=== PATIENT | female | born 1960 | race Caucasian/White ===

== ENCOUNTER 2019-12-25 12:23 | Day surgery (SDC) | payer BC ==
[2019-12-22 09:24] VITALS: BMI 21.9
[~2019-12-25 12:23] MED LIST: Lidocaine 1% PF 5 ML VIAL ONE; PROPOFOL 200 MG/20 ML VIAL ONE
[2019-12-25] MEDS ORDERED: Ketorolac Tromethamine 30 MG/ML VIAL ONE (12:51)
[2019-12-25] MEDS ORDERED: Acetaminophen 500 MG TAB ONE (12:52)
[2019-12-25 13:17] LABS: #Basophils 0.1 thou/uL (0.0-0.2); #Eosinphils 0.1 thou/uL (0.0-0.7); #Monocytes 0.5 thou/uL (0.11-0.59); #Neutrophils 4.9 thou/uL (1.40-6.50); %Lymphocytes 35.2 % (21.0-51.0); %Monocytes 5.7 % (0.0-10.0); Hemoglobin 13.3 g/dL (12.0-16.0); Mean Corpuscular HGB CONC 32.7 g/dL (32.0-36.0); Mean Corpuscular Hemoglobin 27.9 pg (27.0-31.0); Mean Corpuscular Volume 85.3 fL (78.0-98.0); Mean Platelet Volume 7.1 fL (7.4-10.4); Platelet Count 245 thou/uL (130-400); RBC Distribution Width 11.8 % (11.5-14.5); Red Blood Cell (RBC) Count 4.76 mill/uL (4.20-5.40); White Blood Cell (WBC) Count 8.6 thou/uL (4.8-10.8)
[2019-12-25] MEDS ORDERED: Lidocaine 1% w/Epinephrine 1:100K 20 ML VIAL ONE (13:25)
[2019-12-25] MEDS ORDERED: Bupivacaine 0.25% HCL 30 ML VIAL ONE (13:25)
[2019-12-25] MEDS ORDERED: Midazolam HCl 2 mg/2 ml Vial ONE (13:27)
[2019-12-25] MEDS ORDERED: Fentanyl 100 MCG/2 ML VIAL ONE (13:27)
[2019-12-25 13:35] LABS: Anion Gap 11 mmol/L (10-20); BUN (Urea Nitrogen) 12 mg/dL (9.8-20.1); Calc. Creatinine Clearance 69 mL/min (70-130); Calcium 8.9 mg/dL (7.8-10.44); Carbon Dioxide 28 mmol/L (22-29); Chloride 105 mmol/L (98-107); Estimated GFR-MDRD 72; Glucose 87 mg/dL (70-105); Potassium 3.9 mmol/L (3.5-5.1); Sodium 140 mmol/L (136-145)
--- NOTE | 2019-12-25 16:35 | RAD ---
PORTABLE CHEST: Date: 12-25-2019 Time: 2:38 p.m. History: Mediport placement. FINDINGS: There is a left internal jugular port-a-cath with tip in the projection of the SVC. The heart size is normal. The lungs are expanded without lobar consolidation, pneumothoraces or pleural effusions. The re are degenerative changes in the spine. IMPRESSION: No radiographic evidence of acute cardiopulmonary process. POS: OFF
--- NOTE | 2019-12-25 16:46 | RAD ---
EXAM: XR Chest Insp/Exp PROVIDED CLINICAL HISTORY: Post left Mediport catheter placement. Initial chest x-ray questioned possibility of pneumothorax, an d an inspiratory and expiratory chest x-ray was recommended. COMPARISON: 12/25/2019 at 1430 hours. FINDINGS: A left internal jugular vein Mediport catheter remains in place and unchanged in position. There is a small left apical pneumothorax probably visualized on the expiratory phase of imaging which does appear less than 15% volume of the left hemithorax. The lungs are otherwise clear. No pleural effusio n is seen. No other interval change. IMPRESSION: Small left apical pneumothorax. Findings were discussed with Dr. Ragland on 12/25/2019 at 1639 hours.
--- NOTE | 2019-12-26 07:30 | RAD ---
PORTABLE CHEST 1 VIEW: Date: 12/25/2019 Time: 1438 hours HISTORY: MediPort placement. FINDINGS: There is left internal jugular Port-A-Cath with tip in the projection of the SVC. The heart size is n ormal. The lungs are well expanded with suggestion of a tiny left apical pneumothorax. There are dege nerative changes in the spine. IMPRESSION: Probable tiny left apical pneumothorax. Repeating exam with expiration and inspiration views would be helpful. POS: OFF
--- NOTE | 2019-12-26 12:32 | OP ---
DATE OF PROCEDURE: 12/25/2019 PREOPERATIVE DIAGNOSIS: Triple-negative right breast cancer. POSTOPERATIVE DIAGNOSIS: Triple-negative right breast cancer. PROCEDURE PERFORMED: Placement of left internal jugular low-profile MediPort (attempted left subclavian). ANESTHESIA: General with total intravenous anesthesia. INDICATIONS: The patient is a 59-year-old white female. She was recently diagnosed with a fairly sizable right breast triple-negative cancer. She was taken to the operating room at this time for MediPort placement for chemotherapy administration. DESCRIPTION OF OPERATION: Informed consent was obtained. The patient was taken to the operating room, where general anesthesia was obtained with the patient in supine position. Bilateral chest and neck were prepped with ChloraPrep and draped in sterile fashion. Local anesthetic was infiltrated on the left chest wall and large gauge needle was passed under the clavicle medially. After several attempts, I had only entered the subclavian artery on few occasions. I attempted in several different positions and needle entry sites. For reasons that were not clear, I never could access the subclavian vein and after hitting the artery a couple of times, I had likely developed a hematoma at that location. I therefore decided to switch to a left internal jugular access. Ultrasound was utilized and the area on the skin was locally anesthetized. Large gauge needle was passed on the initial pass into the left internal jugular vein. Guidewire was passed through the needle, which was fluoroscopically confirmed to enter the superior vena cava. An incision was created based on needle insertion site. A counter incision was created on the left chest wall after local anesthetic was infiltrated. A subcutaneous pocket was dissected extending inferiorly. A tunneler was used to tunnel the catheter between the chest wall incision and the neck incision. Under fluoroscopy, an introducer dilator was passed over the guidewire. The catheter was passed through the introducer, which was removed in the usual peel-apart fashion. The catheter tip was positioned at the atriocaval junction. The catheter was trimmed to the appropriate length within the chest wall incision and secured to the locking hub of the MediPort, which was secured to pectoral fascia with 2 interrupted sutures of 3-0 Prolene. The port aspirated blood freely and was flushed with heparinized saline. Both incisions were closed in layers with 3-0 and 4-0 Monocryl. An additional local anesthetic was infiltrated during closure. There were no complications. The patient tolerated the procedure well and was taken to recovery room in stable condition. Job ID: [id number]
== END 2019-12-25 17:05 | disposition home or self-care (01) ==
LOC: SDC 12:23
PROVIDERS: ATTEND Specialist
PROC: 02HV33Z Insertion of Infusion Device into Superior Vena Cava, Percutaneous Approach (ICD-10-PCS; principal; 2019-12-25)
PROC: B518ZZA Fluoroscopy of Superior Vena Cava, Guidance (ICD-10-PCS; principal; 2019-12-25)
DX: C50.411 Malignant neoplasm of upper-outer quadrant of right female breast (principal); Z17.1 Estrogen receptor negative status [ER-]; Z79.899 Other long term (current) drug therapy; Z88.0 Allergy status to penicillin; Z88.8 Allergy status to other drugs, medicaments and biological substances
CPT/HCPCS: 36415; 71045; 80048; 85025; C1788; J0690; J1642; J1885; J2001; J2250; J2704; J3010; S0020

== ENCOUNTER 2019-12-26 14:46 | Observation (INO) | payer BC ==
[2019-12-26 15:57] VITALS: BMI 21.6
--- NOTE | 2019-12-26 16:27 | RAD ---
EXAM: XR Chest Insp/Exp PROVIDED CLINICAL HISTORY: Left-sided pneumothorax. COMPARISON: 12/26/2019 at 1049 hours FINDINGS: Left apical pneumothorax is again seen and better seen on expiratory imaging. The pneumothorax has no t significantly changed when compared to the prior study earlier on today's date. Right lung remains clear. Left internal jugular vein Mediport catheter remains in place and unchanged in positio n. No other interval change. IMPRESSION: Overall stable left pneumothorax.
[2019-12-26] MEDS ORDERED: traMADol HCl 50 MG TAB PO PRN (17:37)
[2019-12-26] MEDS: traMADol HCl 50 MG TAB PO PRN (20:35)
[2019-12-27] MEDS ORDERED: traMADol HCl 50 MG TAB PO PRN (01:59)
--- NOTE | 2019-12-27 07:55 | PDOC.GSPN ---
Surgery Progress Note: Subj - Subjective Narrative: Ms. Herrera is 59 y/o female on hospital day #2 for a left sided pneumothorax. She had a mediport placed for triple negative right breast cancer 2 days ago. Her chest x ray on day of discharge showed a small left sided apical pnemuothorax that progressed to a 'moderate' size located near the left posterior 5th rib. Repeat chest x ray after 5-6 hours yesterday showed that pneumothorax was stable and had not significantly changed. Ms. Herrera only reports soreness from the incision sites of her mediport placement that is controlled with tramadol. Her neck incision only hurts when she moves her neck and pain is rated at a 2/10. She does not have chest pain or shortness of breath. She says that she feels 'some pressure' when taking a deep breath, but can breath deeply with ease. She has no smoking history. She denies dizziness, syncope, palpitations, confusion, n/v/d. No other complaints at this time. Surgery Progress Note: Obj - Vital signs Vital signs: Vital Signs - Most Recent Temp Pulse Resp BP Pulse Ox 97.9 F 65 18 119/76 99 12/27/19 04:03 12/27/19 04:03 12/27/19 04:03 12/27/19 04:03 12/27/19 04:03 - Physical Exam General: no distress ENT: no congestion, normal mucosa Neck: limited ROM (d/t pain) Cardiovascular: regular rate and rhythm, no murmur, other (No peripheral edema) Respiratory: clear to auscultation, normal expansion, normal respiratory effort (No use of accessory muscles or respirations, no peripheral cyanosis or clubbing. No rales, rhonchi or rubs.), breath sounds present, other Wound: healing well, other Surgery Progress Note: A/P - Plan Plan: Ms. Herrera is a 59 y/o female on hospital day #2 for a moderate left sided pneumothorax. She is asymptomatic and her vitals are wnl. Reading of today's chest x ray is still pending and will dictate how we proceed with her care. Based on chest x ray and possible progression of the pneumothorax, we can decide on the need for catheter thoracostomy/chest tube. For now, plan is to continue conservative management given her asymptomatic status. She should continue supplemental O2 via NC at 3 L/min. Will add dvt and gastric prophylaxis.
--- NOTE | 2019-12-27 08:16 | RAD ---
Chest 2 views inspiratory expiratory views HISTORY: Pneumothorax. Follow-up. COMPARISON: 12/25/2019. FINDINGS: Cardiac silhouette remains enlarged. Left apical pneumothorax is again demonstrated, with t he apex of the pleura just above the level of the posterior aspect of the left fourth rib on the expiratory view. Left internal jugular Port-A-Cath remains in place. Lungs are otherwise hyperinflated. Ill-defined parenchymal opacity at the right base is stable. Right lung well inflated. IMPRESSION: Stable radiographic appearance of the left pneumothorax. No new abnormalities are demonst rated.
[2019-12-27 08:50] VITALS: BP 107/72; TEMP 97.6
[2019-12-27] MEDS: traMADol HCl 50 MG TAB PO PRN (09:37)
--- NOTE | 2019-12-27 11:02 | SS ---
DATE OF ADMISSION: 12/26/2019 DATE OF DISCHARGE: 12/27/2019 ADMISSION DIAGNOSIS: Left pneumothorax. HISTORY OF PRESENT ILLNESS: The patient is a 59-year-old white female. She had a left-sided MediPort placed on December 25. There was difficulty accessing the left subclavian vein and the port had to eventually be placed in the left internal jugular vein. Postprocedure, chest x-ray documented a small pneumothorax that was only reliably seen on the inspiratory and expiratory chest x-ray. Since it was small and she was asymptomatic, she was discharged home. The following day (yesterday), a followup inspiratory and expiratory chest x-ray was obtained. This revealed that the pneumothorax had enlarged in size. I therefore requested that she presented to the hospital for admission and possible pneumothorax catheter placement. When she presented to the hospital yesterday evening, followup inspiratory and expiratory views were obtained and the pneumothorax appeared to be smaller in size. PAST MEDICAL HISTORY: Significant for a recent diagnosis of a triple negative right breast cancer. PAST SURGICAL HISTORY: Significant for hysterectomy, bilateral eye surgery, and recent breast biopsy and MediPort placement. MEDICATIONS: She is taking estradiol and supplements. ALLERGIES: PENICILLIN AND LAMISIL. PHYSICAL EXAMINATION: VITAL SIGNS: Upon admission, she is afebrile with pulse of 73, blood pressure 128/90, and oxygen saturation of 99% on room air. Full physical examination was unremarkable other than her right breast cancer in the upper outer quadrant and a left-sided MediPort, which is healing nicely with no significant tenderness or bruising. She also has a neck incision from the port placement that is healing appropriately. She has no change in breath sounds anteriorly, but there are some minimal decreased breath sounds on the left upper chest posteriorly. LABORATORY DATA: None were obtained. ASSESSMENT: The patient with left pneumothorax following MediPort placement. PLAN: Admission and observation. HOSPITAL COURSE: She was stable overnight and is without complaint or symptoms. Followup chest x-ray was obtained this morning that shows that the pneumothorax is still present but is small and may be decreasing slightly in size. She is breathing uneventfully and has no symptoms of discomfort or pressure. Assessment at this time, I think that this will likely resolve spontaneously. Since this is a small pneumothorax and I discussed with her the possibility that placement of a pneumothorax catheter could actually injure the underlying lung and right now, I think that the risks of treating the pneumothorax potentially outweigh the benefits if it is going to resolve spontaneously. Since it is entirely stable over 36 hours when this occurred, I think she is safe for discharge home. I will recheck chest x-ray in 48 hours. She is going to be in town for chemotherapy teaching. She is given my card and asked to call me at any time if she has any increased symptoms. Job ID: [id number]
== END 2019-12-27 10:49 | disposition home or self-care (01) ==
LOC: ONC 15:30 → INTOOBSV 15:30
PROVIDERS: ADMIT Specialist; ATTEND Specialist
DX: J93.9 Pneumothorax, unspecified (principal); C50.911 Malignant neoplasm of unspecified site of right female breast; Z17.1 Estrogen receptor negative status [ER-]; Z79.899 Other long term (current) drug therapy; Z88.0 Allergy status to penicillin; Z88.8 Allergy status to other drugs, medicaments and biological substances
CPT/HCPCS: 71045; G0378

== ENCOUNTER 2019-12-29 09:58 | Outpatient (CLI) | payer BC ==
--- NOTE | 2019-12-29 13:13 | RAD ---
INSPIRATORY AND EXPIRATORY CHEST: Date: 12/29/2019 HISTORY: Follow-up of pneumothorax. COMPARISON: 12/27/2019 exam. FINDINGS: Heart size is within normal limits. Left-sided MediPort catheter is again demonstrated. Left-sided pn eumothorax is stable as compared to the 12/27/2019 examination. Right lower lobe parenchymal changes again demonstrated. IMPRESSION: Stable appearance to left-sided pneumothorax as compared to the 2004 and 2005 studies. POS: [facility]
== END 2019-12-29 09:59 | disposition home or self-care (01) ==
LOC: RAD 09:58 → ULT 09:59
PROVIDERS: ATTEND Internal Medicine Hematology & Oncology
DX: Z51.11 Encounter for antineoplastic chemotherapy (principal); C50.811 Malignant neoplasm of overlapping sites of right female breast; C50.411 Malignant neoplasm of upper-outer quadrant of right female breast; I08.1 Rheumatic disorders of both mitral and tricuspid valves; I31.3 Pericardial effusion (noninflammatory); J93.9 Pneumothorax, unspecified; Z79.899 Other long term (current) drug therapy
CPT/HCPCS: 36415; 71045; 80048; 93306

== ENCOUNTER 2019-12-29 14:56 | Day surgery (SDC) | payer BC ==
--- NOTE | 2019-12-29 17:13 | RAD ---
INSPIRATORY AND EXPIRATORY CHEST: 12/29/19 HISTORY: Heimlich valve placement. COMPARISON: Earlier exam the same day. The left sided pneumothorax has now almost completely resolved with placement of a Heimlich valve tub e. A tiny apical pneumothorax still seen on the expiration film. IMPRESSION: Almost complete resolution of the left sided pneumothorax post tube placement. POS: [facility]
--- NOTE | 2019-12-31 07:28 | OP ---
DATE OF PROCEDURE: 12/29/2019 PREOPERATIVE DIAGNOSIS: Left pneumothorax. POSTOPERATIVE DIAGNOSIS: Left pneumothorax. PROCEDURE PERFORMED: Placement of left-sided pneumothorax catheter with Heimlich valve. ANESTHESIA: 1% lidocaine. INDICATIONS: The patient is a 59-year-old white female. Four days previously, she had a left subclavian MediPort placement attempted. I could not access the left subclavian vein. Eventually, it had to be placed in the left internal jugular vein. It was recognized after the procedure that she did have a small left pneumothorax. This has been observed for the past few days and is deemed to be somewhat stable, but as of today, four days after her procedure, it is persistent and probably larger. I therefore recommended pneumothorax catheter placement at this time. DESCRIPTION OF PROCEDURE: Informed consent was obtained. The patient was placed on her bed in the Day Surgery area on her right lateral decubitus position. The left side of the chest was prepped with ChloraPrep and draped in sterile fashion. It was locally anesthetized with 1% lidocaine. A small stab incision was created. Pneumothorax catheter was advanced over the underlying rib into the pleural space. Air was aspirated, the catheter was passed over the needle and advanced superiorly. The catheter was secured at skin exit site with 3-0 silk suture. It was secured to tubing with the Heimlich valve. Prior to securing this tubing, I utilized the stopcock to aspirate the air from within the pneumothorax until all air had been aspirated. It was then placed within the Heimlich valve. Chest x-ray documented good position of the catheter and what appeared to be appropriate resolution of the pneumothorax. Dressing was applied. The patient was instructed in care. She is discharged home. She will follow up in my office in 3 days (on Wednesday) for catheter removal. Job ID: [id number]
== END 2019-12-29 16:20 | disposition home or self-care (01) ==
LOC: SDC 14:56
PROVIDERS: ATTEND Specialist
PROC: 0B9P30Z Drainage of Left Pleura with Drainage Device, Percutaneous Approach (ICD-10-PCS; principal; 2019-12-29)
DX: J93.9 Pneumothorax, unspecified (principal); Z88.0 Allergy status to penicillin; Z88.3 Allergy status to other anti-infective agents
CPT/HCPCS: 71045

== ENCOUNTER 2020-01-01 08:37 | Outpatient (CLI) | payer BC ==
--- NOTE | 2020-01-01 10:08 | CT ---
CT Chest Abd Pelvis W Con HISTORY: Right breast cancer, triple negative. Exam requested for staging COMPARISON: None. FINDINGS: There is a peripherally enhancing 2.5 cm right breast mass consistent with known history of malignanc y. No mediastinal, hilar, axillary mass or lymphadenopathy is seen. No pleural or pericardial effusions are seen. A left-sided pleural catheter is present. No pneumothoraces are seen. No lung nod ules or masses are identified. There is minimal atelectatic change at the left lung base. The liver, spleen, pancreas, adrenal glands and kidneys appear normal. No calcified gallstones are se en. No free air or free fluid in lymphadenopathy is noted in the abdomen or pelvis. The small bowel loops aren't abnormally dilated. Appendix is normal. There are degenerative changes in the thoracic and lumbar spine. No osteolytic or osteoblastic lesion s are identified. IMPRESSION: Right breast malignancy without evidence of distant metastatic disease.
--- NOTE | 2020-01-01 13:26 | NM ---
WHOLE BODY BONE SCAN: HISTORY: Right breast cancer, triple negative. Initial staging RADIOPHARMACEUTICAL: 33 mCi technetium 99m-MDP injected intravenously COMPARISON: None CORRELATION: CT scan of the chest abdomen and pelvis from same date FINDINGS There scattered degenerative activity in the appendicular skeleton. No other abnormal areas of tracer localization are seen in the skeleton to suggest metastatic disease . Tracer excretion through the kidneys is within normal limits. IMPRESSION: No scintigraphic evidence of osseous metastatic disease.
[2020-01-01] MEDS ORDERED: Iopamidol 370 76% 100 ML VIAL ONE (15:47)
== END 2020-01-01 08:38 | disposition home or self-care (01) ==
LOC: CT 08:37
PROVIDERS: ATTEND Internal Medicine Hematology & Oncology
DX: C50.811 Malignant neoplasm of overlapping sites of right female breast (principal); M25.50 Pain in unspecified joint
CPT/HCPCS: 71260; 74177; 78306; A9503; Q9967

== ENCOUNTER 2020-01-11 14:37 | Outpatient (CLI) | payer BC | END 2020-01-11 14:38 | disposition home or self-care (01) | LOC: ULT 14:37 | PROVIDERS: ATTEND Internal Medicine Hematology & Oncology | DX: Z51.11 Encounter for antineoplastic chemotherapy (principal); C50.811 Malignant neoplasm of overlapping sites of right female breast; I08.1 Rheumatic disorders of both mitral and tricuspid valves | CPT/HCPCS: 93306 ==

== ENCOUNTER 2020-02-22 14:06 | Outpatient (CLI) | payer BC ==
[~2020-02-22 14:06] MED LIST changes: +Iopamidol 370 76% 100 ML VIAL ONE; -Lidocaine 1% PF 5 ML VIAL ONE; -PROPOFOL 200 MG/20 ML VIAL ONE
--- NOTE | 2020-02-22 15:05 | CT ---
CTA THORAX UTILIZING IV CONTRAST PE PROTOCOL 3D REFORMATTED IMAGING: Date: 02/22/2020 INDICATION: History of shortness of breath for a few weeks following initiation of immunotherapy. Patient has a h istory of MediPort placement, as well as breast cancer. COMPARISON: CT of the chest, abdomen, and pelvis dated 01/30/2020. FINDINGS: The ill-defined mass within the right breast is again demonstrated. No definite pathologically enlarg ed lymph nodes are evident. No central or segmental pulmonary embolus is noted. Heart and great vesse ls appear within normal limits. There is a left IJ chest wall port in place. There are areas of subse gmental volume loss within the left lower lobe, which is new. No focal consolidation, marked air spac e opacity, or pleural effusion is noted. No suspicious pulmonary nodules are evident. Areas of suspec rodrigo subsegmental volume loss seen within the right middle lobe. Visualized upper abdomen reveals no d efinite acute abnormality. No acute osseous abnormality is demonstrated. IMPRESSION: 1. No central or segmental pulmonary embolus. 2. Nonspecific subsegmental volume loss in the left lower lobe and right middle lobe. POS: [facility]
== END 2020-02-22 14:07 | disposition home or self-care (01) ==
LOC: CT 14:06
PROVIDERS: ATTEND Internal Medicine Hematology & Oncology
DX: C50.811 Malignant neoplasm of overlapping sites of right female breast (principal); I26.99 Other pulmonary embolism without acute cor pulmonale; R06.02 Shortness of breath; R91.8 Other nonspecific abnormal finding of lung field
CPT/HCPCS: 71275; Q9967

== ENCOUNTER 2020-03-01 13:06 | Emergency (ER) | payer BC, OTHER ==
--- NOTE | 2020-03-01 14:14 | RAD ---
Portable frontal chest radiograph: 03/01/2020 COMPARISON: 12/25/2019 HISTORY: Cough, concern for chen virus FINDINGS: Lungs are clear. Heart and mediastinal contours appear within normal limits. There is a lef t-sided Port-A-Cath. IMPRESSION: No acute findings.
[2020-03-01 14:27] LABS: #Lymphocytes 0.8 thou/uL (1.20-3.40); #Monocytes 0.1 thou/uL (0.11-0.59); #Neutrophils 3.2 thou/uL (1.40-6.50); %Basophils 1.1 % (0.0-1.0); %Eosinophils 0.3 % (0.0-10.0); %Lymphocytes 20.1 % (21.0-51.0); %Monocytes 2.3 % (0.0-10.0); %Neutrophils 76.3 % (42.0-75.0); Hemoglobin 10.5 g/dL (12.0-16.0); Mean Corpuscular HGB CONC 34.6 g/dL (32.0-36.0); Mean Corpuscular Volume 86.7 fL (78.0-98.0); Mean Platelet Volume 7.3 fL (7.4-10.4); Platelet Count 200 thou/uL (130-400); RBC Distribution Width 14.7 % (11.5-14.5); Red Blood Cell (RBC) Count 3.51 mill/uL (4.20-5.40); White Blood Cell (WBC) Count 4.1 thou/uL (4.8-10.8)
[2020-03-01 14:53] LABS: ALT (SGPT) 35 U/L (8-55); AST (SGOT) 31 U/L (5-34); Albumin 3.2 g/dL (3.5-5.0); Alkaline Phosphatase 55 U/L (40-110); Anion Gap 12 mmol/L (10-20); BUN (Urea Nitrogen) 16 mg/dL (9.8-20.1); Bilirubin, Total 0.8 mg/dL (0.2-1.2); CK (CPK) 167 U/L (29-168); Calc. Creatinine Clearance 0 mL/min (70-130); Calcium 8.4 mg/dL (7.8-10.44); Carbon Dioxide 26 mmol/L (22-29); Chloride 99 mmol/L (98-107); Estimated GFR-MDRD 61; Globulin 2.5 g/dL (2.4-3.5); Glucose 132 mg/dL (70-105); Magnesium 1.8 mg/dL (1.6-2.6); Potassium 3.3 mmol/L (3.5-5.1); Protein, Total 5.7 g/dL (6.0-8.3); Sodium 134 mmol/L (136-145)
--- NOTE | 2020-03-09 09:11 | EKG ---
Test Reason : Blood Pressure : / mmHG Vent. Rate : 064 BPM Atrial Rate : 064 BPM P-R Int : 098 ms QRS Dur : 090 ms QT Int : 432 ms P-R-T Axes : 046 047 023 degrees QTc Int : 445 ms Sinus rhythm with short [place] Otherwise normal ECG Confirmed by YASMIN BA DO ([id number]), web editor DARIO STEWART ([id number]) on 03/09/2020 9:11:05 AM Referred By: Confirmed By:YASMIN BA DO
== END 2020-03-01 17:00 | disposition home or self-care (01) ==
LOC: ERS 13:06
DX: R05 Cough (principal); R07.89 Other chest pain; Z20.828 Contact with and (suspected) exposure to other viral communicable diseases; Z79.899 Other long term (current) drug therapy
CPT/HCPCS: 71045; 80053; 82550; 83605; 83735; 84484; 85025; 87635; 87804; 93005; 96360; 96361; U0003

== ENCOUNTER 2020-03-06 10:23 | Outpatient (CLI) | payer BC ==
--- NOTE | 2020-03-06 11:39 | CT ---
CHEST CT SCAN WITHOUT IV CONTRAST: Date: 03/06/2020 HISTORY: Pneumonitis, history of breast cancer. FINDINGS: There is persistent somewhat obliquely oriented linear parenchymal changes in the left lower lobe, so mewhat thickened at the pleura, stable. This certainly could represent some persistent subsegmental a telectasis. This finding was not evident on prior CT of 01/01/2020. The previously noted minimal line ar and parenchymal changes in the right middle lobe have resolved. No evidence for pulmonary nodule o r pulmonary mass. No mediastinal mass or adenopathy. No pleural effusion or pericardial effusion. Sta ble right breast mass. No evidence for bone metastasis. IMPRESSION: 1. Stable obliquely oriented linear and parenchymal change in the left lower lobe, evidence for part ial atelectasis. 2. Resolution of the previously noted minimal linear and parenchymal changes in the right middle lob e. 3. Stable right breast mass. 4. No mediastinal mass or adenopathy, pleural effusion, pericardial effusion, or other significant n ew process. 5. No evidence for metastasis. POS: [facility]
== END 2020-03-06 10:24 | disposition home or self-care (01) ==
LOC: BICCT 10:23
PROVIDERS: ATTEND Internal Medicine Hematology & Oncology
DX: C50.811 Malignant neoplasm of overlapping sites of right female breast (principal); J69.8 Pneumonitis due to inhalation of other solids and liquids; I26.99 Other pulmonary embolism without acute cor pulmonale; R06.02 Shortness of breath; N63.10 Unspecified lump in the right breast, unspecified quadrant; J98.11 Atelectasis
CPT/HCPCS: 71250

== ENCOUNTER 2020-05-30 05:25 | Outpatient (CLI) | payer BC, OTHER ==
[2020-05-30 16:54] LABS: Anion Gap 13 mmol/L (10-20); BUN (Urea Nitrogen) 11 mg/dL (9.8-20.1); Calc. Creatinine Clearance 0 mL/min (70-130); Calcium 9.5 mg/dL (7.8-10.44); Carbon Dioxide 29 mmol/L (22-29); Chloride 102 mmol/L (98-107); Estimated GFR-MDRD 73; Glucose 69 mg/dL (70-105); Sodium 140 mmol/L (136-145)
[2020-05-30 17:55] LABS: Band 31 % (5-11); Dohle Bodies SLIGHT; Hemoglobin 11.1 g/dL (12.0-16.0); Lymphocytes 11 % (21-51); MDiff Complete? YES; Mean Corpuscular HGB CONC 33.5 g/dL (32.0-36.0); Mean Corpuscular Hemoglobin 31.2 pg (27.0-31.0); Mean Corpuscular Volume 93.1 fL (78.0-98.0); Mean Platelet Volume 7.8 fL (7.4-10.4); Metamyelocyte 3 % (0-0); Monocytes 17 % (0-10); Myelocyte 4 % (0-0); Neutrophil 33 % (42-75); Ovalocytes SLIGHT = 2-5 cells (100X) (0-1/hpf); Platelet Count 229 thou/uL (130-400); Platelet Morphology Comment Appears Adequate; Polychromasia SLIGHT = 2-3 cells (100X) (0-2/hpf); RBC Distribution Width 14.6 % (11.5-14.5); Red Blood Cell (RBC) Count 3.56 mill/uL (4.20-5.40); Toxic Granulation SLIGHT; White Blood Cell (WBC) Count 14.4 thou/uL (4.8-10.8)
[2020-05-31 12:53] LABS: SARS-CoV-2 MS2 Positive; SARS-CoV-2 N Gene Negative; SARS-CoV-2 S Gene Negative; SARS-CoV-2 orf1ab Negative
== END 2020-05-30 05:26 | disposition home or self-care (01) ==
LOC: LABBT 05:25
PROVIDERS: ATTEND Specialist
DX: Z01.812 Encounter for preprocedural laboratory examination (principal); Z11.59 Encounter for screening for other viral diseases; C50.411 Malignant neoplasm of upper-outer quadrant of right female breast
CPT/HCPCS: 80048; 85025; 87635; U0003

== ENCOUNTER 2020-06-04 07:30 | Day surgery (SDC) | payer BC ==
[2020-05-28 14:27] VITALS: BMI 21.9
--- NOTE | 2020-06-04 09:10 | NM ---
Exam: Nuclear medicine lymphoscintigraphy HISTORY: Malignant neoplasm of the upper outer quadrant of the right female breast TECHNIQUE: Patient administered 0.393 mm of technetium 99m filtered sulfur colloid subjacent at the 1 2:00, 3:00, 6:00 and 9:00 position. FINDINGS: Static images demonstrate a right axillary sentinel lymph node. IMPRESSION: Right axillary sentinel lymph node
[2020-06-04] MEDS ORDERED: Acetaminophen 500 MG TAB ONE (09:16)
[2020-06-04] MEDS ORDERED: Ketorolac Tromethamine 30 MG/ML VIAL ONE (09:16)
[2020-06-04] MEDS ORDERED: Lidocaine-Prilocaine 2.5% Cream 5 GM TUBE ONE (10:03)
[2020-06-04] MEDS ORDERED: Lidocaine 1% w/Epinephrine 1:100K 20 ML VIAL ONE (11:45)
[2020-06-04] MEDS ORDERED: Bupivacaine 0.25% HCL 30 ML VIAL ONE (11:45)
[2020-06-04] MEDS ORDERED: Fentanyl 100 MCG/2 ML VIAL ONE (11:56)
[2020-06-04] MEDS ORDERED: Isosulfan Blue 50 MG/5 ML VIAL ONE (12:17)
[2020-06-04] MEDS ORDERED: EPHEDRINE 25 MG/5 ML SYRINGE ONE (12:42)
[2020-06-04] MEDS ORDERED: Ondansetron PF 4 MG/2 ML Vial ONE (12:42)
[2020-06-04] MEDS ORDERED: Dexamethasone 20 MG/5 ML VIAL ONE (12:42)
[2020-06-04] MEDS ORDERED: PHENYLEPHRINE-NS 100 MCG/ML 10 ML SYRINGE ONE (12:42)
[2020-06-04] MEDS ORDERED: PROPOFOL 200 MG/20 ML VIAL ONE (12:42)
[2020-06-04] MEDS ORDERED: Lidocaine 1% PF 5 ML VIAL ONE (12:42)
--- NOTE | 2020-06-05 13:46 | OP ---
DATE OF PROCEDURE: 06/04/2020 PREOPERATIVE DIAGNOSES: Right breast cancer with previous right axillary lymphadenopathy. POSTOPERATIVE DIAGNOSES: Right breast cancer with previous right axillary lymphadenopathy. PROCEDURES PERFORMED: Ultrasound-guided right breast needle localization, right breast needle localized lumpectomy, right axillary sentinel lymph node mapping, and right axillary sentinel lymph node biopsy. ANESTHESIA: General endotracheal. INDICATIONS: The patient is a 59-year-old female. She had been diagnosed with a palpable malignancy in the upper outer right breast. Ultrasound had revealed lymphadenopathy. Secondary to the large size of her malignancy, I had recommended neoadjuvant chemotherapy. She had completed her chemotherapy with a significant decrease in the size of the malignancy. It was still; however, easily visible with ultrasound. The axillary lymphadenopathy was no longer visible at the time of preoperative evaluation. She elected to proceed with the breast conservation surgery. DESCRIPTION OF OPERATION: Informed consent was obtained. The patient was taken to the operating room, where general endotracheal anesthesia was obtained with the patient in supine position. The patient had undergone lymphoscintigraphy, which revealed right axillary sentinel lymph nodes. A 3 mL of Lymphazurin was infiltrated into the periareolar subdermal tissue and massaged for 5 minutes. The breast and axilla were then prepped with ChloraPrep and draped in sterile fashion. Ultrasound was utilized to katy the location of the malignancy in the upper outer quadrant. It was marked on the skin in a grid like fashion. I then turned my attention to the axilla. Local anesthetic was infiltrated using a mixture of 1% lidocaine with epinephrine as well as 0.25% Marcaine. A transverse low axillary incision was created and dissection was carried through skin and subcutaneous tissue. Neoprobe was utilized to identify areas of maximum radio intensity. I was able to identify two separate sentinel lymph nodes, each of which had blue dye. One of them was the dominant sentinel lymph node, while the other had much less radioactivity. After these two were removed, there was no other area of significant radioactivity within the axilla. There was no palpable area of abnormality. Ultrasound revealed no other significant lymphadenopathy within the axilla. Each of the nodes as they were identified was dissected circumferentially and the investing lymphatics were divided between clamps and 3-0 silk ties. The nodes were submitted for touch prep evaluation. There was found to be no evidence of malignancy in either lymph node. The wound was then closed in layers with 3-0 and 4-0 Monocryl and local anesthetic was infiltrated during closure. Attention was turned to the malignancy. A localizing needle was passed in a medial to lateral fashion through the malignancy. The location of the needle relative to the malignancy was appreciated. Because of the proximity of the malignancy to the skin, I elected to remove an ellipse of skin over the top of this. An elliptical incision was created and dissection was carried through skin and subcutaneous tissue. Flaps were raised superiorly and inferiorly. Dissection was then carried out on the medial aspect behind the localizing wire to get down below the area of the malignancy. I dissected a wide core of tissue around the localizing wire and removed this intact. It was interrogated with ultrasound during closure to ensure appropriate margins. The removed specimen was then tagged with sutures for orientation and passed off the field. Specimen mammography revealed the clip within the specimen. Meticulous hemostasis was obtained. The wound was closed in layers with 3-0 and 4-0 Monocryl without attempting to completely close the space. Dermabond was placed externally on each incision. There were no complications. Blood loss was negligible. The patient tolerated the procedure well and was taken to recovery room in stable condition. Job ID: [id number]
== END 2020-06-04 15:40 | disposition home or self-care (01) ==
LOC: SDC 07:30
PROVIDERS: ATTEND Specialist
PROC: 07B50ZZ Excision of Right Axillary Lymphatic, Open Approach (ICD-10-PCS; principal; 2020-06-04)
PROC: 0HBT0ZZ Excision of Right Breast, Open Approach (ICD-10-PCS; principal; 2020-06-04)
DX: C50.411 Malignant neoplasm of upper-outer quadrant of right female breast (principal); Z17.1 Estrogen receptor negative status [ER-]; Z79.82 Long term (current) use of aspirin; Z79.84 Long term (current) use of oral hypoglycemic drugs; Z88.0 Allergy status to penicillin; Z88.8 Allergy status to other drugs, medicaments and biological substances
CPT/HCPCS: 76098; 78195; 88307; 88333; 88334; 88342; 93005; 93010; A9541; J0690; J1100; J1642; J1885; J2405; J2704; J3010; Q9968; S0020

== ENCOUNTER 2021-07-01 06:20 | Day surgery (SDC) | payer BC ==
[2021-06-30 11:07] VITALS: BMI 24.7
[~2021-07-01 06:20] MED LIST changes: +Acetaminophen 500 MG TAB PO PRN; +Cyclopentolate 1% Opth Drop 2 ML BOT L EYE SCH; +EPINEPHrine 0.3 MG in Ophthalmic Irrigation Solution 500 ML IRR SCH; -Iopamidol 370 76% 100 ML VIAL ONE; +Phenylephrine 2.5% Ophth Soln 5 ML BOT L EYE SCH
[2021-07-01] MEDS ORDERED: EPINEPHrine 0.3 MG in Ophthalmic Irrigation Solution 500 ML IRR SCH (06:30)
[2021-07-01] MEDS ORDERED: Cyclopentolate 1% Opth Drop 2 ML BOT ONE (06:39)
[2021-07-01] MEDS ORDERED: Phenylephrine 2.5% Ophth Soln 5 ML BOT ONE (06:39)
[2021-07-01] MEDS ORDERED: Fentanyl 100 MCG/2 ML VIAL ONE (06:58)
[2021-07-01] MEDS ORDERED: Midazolam HCl 2 mg/2 ml Vial ONE (07:41)
[2021-07-01] MEDS ORDERED: Bupivacaine PF 0.75% SDV 10 ML ONE (07:48)
[2021-07-01] MEDS ORDERED: Triamcinolone 40 MG/ML VIAL ONE (07:48)
[2021-07-01] MEDS ORDERED: PROPOFOL 200 MG/20 ML VIAL ONE (07:48)
[2021-07-01] MEDS ORDERED: Maxitrol 0.1% Opth Oint 3.5 GM TUBE ONE (07:48)
[2021-07-01] MEDS ORDERED: Indocyanine Green 25 MG/10 ML VIAL ONE (07:48)
[2021-07-01] MEDS ORDERED: Lidocaine 4% PF 5 ML AMP ONE (07:48)
== END 2021-07-01 08:40 | disposition home or self-care (01) ==
LOC: SDC 06:20
PROVIDERS: ATTEND Ophthalmology Retina Specialist
PROC: 08T53ZZ Resection of Left Vitreous, Percutaneous Approach (ICD-10-PCS; principal; 2021-07-01)
PROC: 08NF3ZZ Release Left Retina, Percutaneous Approach (ICD-10-PCS; principal; 2021-07-01)
DX: H35.372 Puckering of macula, left eye (principal); Z88.0 Allergy status to penicillin; Z88.8 Allergy status to other drugs, medicaments and biological substances; Z79.899 Other long term (current) drug therapy; Z90.710 Acquired absence of both cervix and uterus; Z98.890 Other specified postprocedural states
CPT/HCPCS: J0171; J2250; J2704; J3010; J3301; J3490

== ENCOUNTER 2021-09-02 05:53 | Day surgery (SDC) | payer BC ==
[2021-09-01 16:03] VITALS: BMI 24.0
[~2021-09-02 05:53] MED LIST changes: -Acetaminophen 500 MG TAB PO PRN; -Cyclopentolate 1% Opth Drop 2 ML BOT L EYE SCH; -Phenylephrine 2.5% Ophth Soln 5 ML BOT L EYE SCH
[2021-09-02] MEDS ORDERED: Phenylephrine 2.5% Ophth Soln 5 ML BOT ONE (06:10)
[2021-09-02] MEDS ORDERED: Cyclopentolate 1% Opth Drop 2 ML BOT ONE (06:10)
[2021-09-02] MEDS ORDERED: PROPOFOL 20 ML ONE (06:28)
[2021-09-02] MEDS ORDERED: Fentanyl 100 MCG/2 ML VIAL ONE (06:28)
[2021-09-02] MEDS ORDERED: Midazolam HCl 2 mg/2 ml Vial ONE (06:28)
[2021-09-02] MEDS ORDERED: Indocyanine Green 25 MG/10 ML VIAL ONE (07:00)
[2021-09-02] MEDS ORDERED: Lidocaine 4% PF 5 ML AMP ONE (07:00)
[2021-09-02] MEDS ORDERED: Bupivacaine PF 0.75% SDV 10 ML ONE (07:00)
[2021-09-02] MEDS ORDERED: Triamcinolone 40 MG/ML VIAL ONE (07:00)
== END 2021-09-02 08:53 | disposition home or self-care (01) ==
LOC: SDC 05:53
PROVIDERS: ATTEND Ophthalmology Retina Specialist
PROC: 08NE3ZZ Release Right Retina, Percutaneous Approach (ICD-10-PCS; principal; 2021-09-02)
PROC: 08T43ZZ Resection of Right Vitreous, Percutaneous Approach (ICD-10-PCS; principal; 2021-09-02)
DX: H35.371 Puckering of macula, right eye (principal); Z88.0 Allergy status to penicillin; Z88.8 Allergy status to other drugs, medicaments and biological substances; Z79.899 Other long term (current) drug therapy; Z98.890 Other specified postprocedural states; Z90.710 Acquired absence of both cervix and uterus
CPT/HCPCS: J0171; J2250; J2704; J3010

== ENCOUNTER 2024-05-03 09:55 | Inpatient (IN) | payer BC ==
[2024-05-03 10:51] LABS: #Basophils 0.03 10x3/uL (0.0-0.2); %Basophils 0.4 % (0.0-1.0); %Eosinophils 1.3 % (0.0-10.0); %Lymphocytes 13.4 % (21.0-51.0); %Monocytes 8.1 % (0.0-10.0); %Neutrophils 76.4 % (42.0-75.0); Hematocrit 31.9 % (36.0-47.0); Hemoglobin 10.6 g/dL (12.0-16.0); Mean Corpuscular HGB CONC 33.2 g/dL (32.0-36.0); Mean Corpuscular Hemoglobin 28.5 pg (27.0-31.0); Mean Corpuscular Volume 85.8 fL (78.0-98.0); Mean Platelet Volume 9.3 fL (7.4-10.4); Platelet Count 182 10x3/uL (130-400); RBC Distribution Width 12.8 % (11.5-14.5); Red Blood Cell (RBC) Count 3.72 mill/uL (4.20-5.40)
[2024-05-03] MEDS ORDERED: Aspirin Chewable 81 MG TAB ONE (11:08)
[2024-05-03 11:15] LABS: ALT (SGPT) 29 U/L (8-55); AST (SGOT) 43 U/L (5-34); Albumin 3.6 g/dL (3.4-4.8); Alkaline Phosphatase 96 U/L (40-110); Anion Gap 13 mmol/L (10-20); BUN (Urea Nitrogen) 12 mg/dL (9.8-20.1); Bilirubin, Total 0.5 mg/dL (0.2-1.2); Calc. Creatinine Clearance 0 mL/min (70-130); Calcium 8.8 mg/dL (7.8-10.44); Carbon Dioxide 23 mmol/L (23-31); Chloride 98 mmol/L (98-107); Estimated GFR 78; Globulin 2.8 g/dL (2.4-3.5); Glucose 104 mg/dL (80-115); Potassium 3.9 mmol/L (3.5-5.1); Protein, Total 6.4 g/dL (5.8-8.1); Sodium 130 mmol/L (136-145)
[2024-05-03 11:19] LABS: Troponin I 0.856 ng/mL (< 0.028)
[2024-05-03 11:31] LABS: INR-International Normal Ratio 1.2; Prothrombin Time 14.8 sec (12.0-14.7)
[2024-05-03] MEDS ORDERED: Iopamidol-370 76% 500 ML MDV (1 ML CHARGE) ONE (12:18)
[2024-05-03 12:20] LABS: Magnesium 1.9 mg/dL (1.6-2.6)
[2024-05-03] MEDS ORDERED: Calcium Carbonate 500 MG ChewTAB PO PRN (13:32)
[2024-05-03] MEDS ORDERED: Ondansetron PF 4 MG/2 ML Vial IVP PRN (13:32)
[2024-05-03] MEDS ORDERED: Senokot S 8.6-50 MG TAB PO PRN (13:32)
[2024-05-03] MEDS ORDERED: Ondansetron ODT 4 MG TAB PO PRN (13:32)
[2024-05-03] MEDS ORDERED: hydrALAZINE 20 MG/ML VIAL SLOW IVP PRN (13:43)
[2024-05-03] MEDS: Acetaminophen 325 MG TAB PO PRN (15:47)
[2024-05-03] MEDS: Sodium Chloride 0.9% 1,000 ML IV SCH (15:49)
[2024-05-03] MEDS: Magnesium 2 GM/50 ML(in water) 2 GM in Premix 1 BAG IVPB SCH (15:50)
[2024-05-03 16:31] LABS: Critical Call Chem Troponin I NUR.MM26 AT 1631; Troponin I 1.077 ng/mL (< 0.028)
[2024-05-03 18:02] VITALS: BMI 22.1
[2024-05-03] MEDS: Atorvastatin Calcium 40 MG TAB PO SCH (21:45)
[2024-05-04 04:48] LABS: #Basophils 0.03 10x3/uL (0.0-0.2); %Basophils 0.3 % (0.0-1.0); %Eosinophils 1.8 % (0.0-10.0); %Lymphocytes 16.1 % (21.0-51.0); %Monocytes 9.9 % (0.0-10.0); %Neutrophils 71.4 % (42.0-75.0); Hematocrit 31.9 % (36.0-47.0); Hemoglobin 10.2 g/dL (12.0-16.0); Mean Corpuscular Hemoglobin 27.6 pg (27.0-31.0); Mean Corpuscular Volume 86.2 fL (78.0-98.0); Mean Platelet Volume 9.5 fL (7.4-10.4); Platelet Count 181 10x3/uL (130-400)
[2024-05-04 05:11] LABS: Anion Gap 15 mmol/L (10-20); BUN (Urea Nitrogen) 16 mg/dL (9.8-20.1); Calc. Creatinine Clearance 64 mL/min (70-130); Calcium 8.4 mg/dL (7.8-10.44); Carbon Dioxide 23 mmol/L (23-31); Cardiac Risk 3.5 (Less than 4.5); Chloride 106 mmol/L (98-107); Cholesterol 230 mg/dl (< 200 Desired); Estimated GFR 77; Glucose 114 mg/dL (80-115); HDL Cholesterol 65 mg/dL (>60 Neg Risk); LDL Cholesterol, Calculated 146 mg/dL; Potassium 4.1 mmol/L (3.5-5.1); Sodium 140 mmol/L (136-145); Triglycerides 96 mg/dL (Less than 150)
[2024-05-04 05:32] LABS: Critical Call Chem Troponin I RESULT DECREASING; Troponin I 0.918 ng/mL (< 0.028)
[2024-05-04] MEDS: Enoxaparin 40 MG (0.4 mL) SYRINGE SC SCH (10:32)
[2024-05-04] MEDS: Clopidogrel Bisulfate 75 MG TAB PO SCH (10:32)
[2024-05-04] MEDS: Aspirin 81 mg Enteric Coated Tablet PO SCH (10:32)
[2024-05-05 04:53] LABS: #Basophils 0.03 10x3/uL (0.0-0.2); %Basophils 0.3 % (0.0-1.0); %Lymphocytes 18.5 % (21.0-51.0); %Monocytes 7.9 % (0.0-10.0); Hematocrit 31.7 % (36.0-47.0); Hemoglobin 10.4 g/dL (12.0-16.0); Mean Corpuscular HGB CONC 32.8 g/dL (32.0-36.0); Mean Corpuscular Hemoglobin 27.3 pg (27.0-31.0); Mean Corpuscular Volume 83.2 fL (78.0-98.0); Mean Platelet Volume 9.5 fL (7.4-10.4); Platelet Count 188 10x3/uL (130-400); RBC Distribution Width 12.9 % (11.5-14.5); Red Blood Cell (RBC) Count 3.81 mill/uL (4.20-5.40)
[2024-05-05 05:11] LABS: Anion Gap 18 mmol/L (10-20); BUN (Urea Nitrogen) 12 mg/dL (9.8-20.1); Calc. Creatinine Clearance 71 mL/min (70-130); Calcium 9.1 mg/dL (7.8-10.44); Carbon Dioxide 22 mmol/L (23-31); Chloride 106 mmol/L (98-107); Estimated GFR 88; Glucose 109 mg/dL (80-115); Potassium 3.7 mmol/L (3.5-5.1); Sodium 142 mmol/L (136-145)
[2024-05-05 12:12] VITALS: BP 107/72; TEMP 98.3
== END 2024-05-05 13:00 | disposition home or self-care (01) | DRG 64 ==
LOC: ERS 09:55 → ERHOLD 11:24 → 2SE 14:47
PROVIDERS: ADMIT Internal Medicine; ATTEND Internal Medicine
DX: I63.9 Cerebral infarction, unspecified (principal); I21.A1 Myocardial infarction type 2; I10 Essential (primary) hypertension; Z88.0 Allergy status to penicillin; Z88.8 Allergy status to other drugs, medicaments and biological substances; Z98.890 Other specified postprocedural states; F41.9 Anxiety disorder, unspecified; K21.9 Gastro-esophageal reflux disease without esophagitis; E83.42 Hypomagnesemia; Z79.899 Other long term (current) drug therapy; Z90.710 Acquired absence of both cervix and uterus; Z79.82 Long term (current) use of aspirin
CPT/HCPCS: 0042T; 36415; 36416; 70450; 70496; 70498; 70551; 80048; 80053; 80061; 83735; 84484; 85025; 85610; 93005; 93306; J1650; J3475; J7050; Q9967

== ENCOUNTER 2024-05-08 18:13 | Inpatient (IN) | payer BC ==
[2024-05-08] MEDS ORDERED: Pantoprazole 40 MG VIAL ONE (20:11)
[2024-05-08 20:59] LABS: #Basophils 0.03 10x3/uL (0.0-0.2); %Basophils 0.3 % (0.0-1.0); %Eosinophils 0.3 % (0.0-10.0); %Lymphocytes 17.7 % (21.0-51.0); %Neutrophils 75.6 % (42.0-75.0); Hematocrit 16.7 % (36.0-47.0); Hemoglobin 5.6 g/dL (12.0-16.0); Mean Corpuscular HGB CONC 33.5 g/dL (32.0-36.0); Mean Corpuscular Hemoglobin 27.9 pg (27.0-31.0); Mean Corpuscular Volume 83.1 fL (78.0-98.0); Mean Platelet Volume 9.8 fL (7.4-10.4); Platelet Count 214 10x3/uL (130-400); RBC Distribution Width 13.3 % (11.5-14.5); Red Blood Cell (RBC) Count 2.01 mill/uL (4.20-5.40)
[2024-05-08 21:06] LABS: ALT (SGPT) 66 U/L (8-55); AST (SGOT) 69 U/L (5-34); Alkaline Phosphatase 118 U/L (40-110); Anion Gap 15 mmol/L (10-20); BUN (Urea Nitrogen) 30 mg/dL (9.8-20.1); Bilirubin, Total 0.2 mg/dL (0.2-1.2); Calc. Creatinine Clearance 0 mL/min (70-130); Calcium 8.2 mg/dL (7.8-10.44); Carbon Dioxide 21 mmol/L (23-31); Chloride 108 mmol/L (98-107); Estimated GFR 91; Globulin 2.6 g/dL (2.4-3.5); Glucose 120 mg/dL (80-115); Potassium 4.2 mmol/L (3.5-5.1); Protein, Total 5.6 g/dL (5.8-8.1); Sodium 140 mmol/L (136-145)
[2024-05-08] MEDS ORDERED: Ondansetron ODT 4 MG TAB PO PRN (22:34)
[2024-05-08] MEDS ORDERED: Ondansetron PF 4 MG/2 ML Vial IVP PRN (22:34)
[2024-05-09 00:46] LABS: Iron 63 ug/dL (50-170); Iron Binding Capacity, Total 261 mcg/dL (265-497)
[2024-05-09] MEDS ORDERED: Acetaminophen 325 MG TAB ONE (05:15)
[2024-05-09] MEDS: Acetaminophen 325 MG TAB PO PRN (05:19)
[2024-05-09 10:00] LABS: Anion Gap 12 mmol/L (10-20); BUN (Urea Nitrogen) 27 mg/dL (9.8-20.1); Calc. Creatinine Clearance 88 mL/min (70-130); Calcium 7.9 mg/dL (7.8-10.44); Carbon Dioxide 22 mmol/L (23-31); Chloride 111 mmol/L (98-107); Estimated GFR 95; Glucose 105 mg/dL (80-115); Potassium 4.4 mmol/L (3.5-5.1); Sodium 141 mmol/L (136-145)
[2024-05-09 11:31] LABS: Hematocrit 24.6 % (36.0-47.0); Hemoglobin 8.3 g/dL (12.0-16.0)
[2024-05-09 13:54] VITALS: BMI 21.9
[2024-05-09 15:33] VITALS: BP 100/62
[2024-05-09 20:20] LABS: #Basophils 0.05 10x3/uL (0.0-0.2); %Basophils 0.4 % (0.0-1.0); %Eosinophils 2.4 % (0.0-10.0); %Lymphocytes 19.7 % (21.0-51.0); %Monocytes 8.3 % (0.0-10.0); %Neutrophils 67.4 % (42.0-75.0); Hematocrit 20.7 % (36.0-47.0); Hemoglobin 6.9 g/dL (12.0-16.0); Mean Corpuscular HGB CONC 33.3 g/dL (32.0-36.0); Mean Corpuscular Hemoglobin 29.2 pg (27.0-31.0); Mean Corpuscular Volume 87.7 fL (78.0-98.0); Mean Platelet Volume 9.7 fL (7.4-10.4); Platelet Count 138 10x3/uL (130-400); RBC Distribution Width 14.7 % (11.5-14.5); Red Blood Cell (RBC) Count 2.36 mill/uL (4.20-5.40)
[2024-05-09] MEDS ORDERED: hydrALAZINE 20 MG/ML VIAL SLOW IVP PRN (20:23)
[2024-05-09] MEDS ORDERED: Labetalol HCl 100 MG/20 ML VIAL SLOW IVP PRN (20:23)
[2024-05-09 20:39] LABS: ALT (SGPT) 43 U/L (8-55); AST (SGOT) 43 U/L (5-34); Albumin 2.7 g/dL (3.4-4.8); Alkaline Phosphatase 84 U/L (40-110); Anion Gap 15 mmol/L (10-20); BUN (Urea Nitrogen) 35 mg/dL (9.8-20.1); Bilirubin, Total 0.4 mg/dL (0.2-1.2); Calc. Creatinine Clearance 69 mL/min (70-130); Calcium 7.9 mg/dL (7.8-10.44); Carbon Dioxide 19 mmol/L (23-31); Chloride 111 mmol/L (98-107); Estimated GFR 86; Globulin 2.1 g/dL (2.4-3.5); Glucose 116 mg/dL (80-115); Magnesium 1.7 mg/dL (1.6-2.6); Potassium 3.6 mmol/L (3.5-5.1); Protein, Total 4.8 g/dL (5.8-8.1); Sodium 141 mmol/L (136-145)
[2024-05-10] MEDS: Potassium Chloride 10 MEQ in Dextrose 5%-Lactated Ringers 1,000 ML IV SCH (00:47)
[2024-05-10 02:42] LABS: Hemoglobin 7.4 g/dL (12.0-16.0); Mean Corpuscular HGB CONC 33.6 g/dL (32.0-36.0); Mean Corpuscular Hemoglobin 29.5 pg (27.0-31.0); Mean Corpuscular Volume 87.6 fL (78.0-98.0); Mean Platelet Volume 9.8 fL (7.4-10.4); Platelet Count 121 10x3/uL (130-400); RBC Distribution Width 14.9 % (11.5-14.5); Red Blood Cell (RBC) Count 2.51 mill/uL (4.20-5.40)
[2024-05-10] MEDS: Pantoprazole 80 MG, Admixture Fee 1 EACH in Sodium Chloride 0.9% 100 ML IVPB SCH (05:49)
[2024-05-10] MEDS: Sodium Chloride 0.9% 500 ML IV SCH (05:49)
[2024-05-10 06:10] LABS: Actual Bicarbonate (HCO3v) 19.5 mEq/L (22-28); Base Excess -0.7 mEq/L (-2.0 to +3.0); Calcium, Ionized (venous) 1.04 mmol/L (1.16-1.32); Chloride (VBG) 109 mmol/L (98-106); Hematocrit-VBG 23 % (36.0-47.0); Hemoglobin (Hb) 7.8 g/dL (11.7-16.0); Potassium (VBG) 3.84 mmol/L (3.70-5.30); Sodium 138 mmol/L (133-146); pH (venous) 7.639 (7.32-7.43)
[2024-05-10 06:11] LABS: Hemoglobin 7.3 g/dL (12.0-16.0)
[2024-05-10 06:24] LABS: INR-International Normal Ratio 1.4; PTT 28.3 sec (22.9-36.1); Prothrombin Time 16.9 sec (12.0-14.7)
[2024-05-10 06:34] LABS: Lactic Acid 1.5 mmol/L (0.5-2.2)
[2024-05-10 06:38] LABS: Anion Gap 11 mmol/L (10-20); BUN (Urea Nitrogen) 32 mg/dL (9.8-20.1); Calc. Creatinine Clearance 82 mL/min (70-130); Calcium 7.8 mg/dL (7.8-10.44); Carbon Dioxide 18 mmol/L (23-31); Chloride 113 mmol/L (98-107); Estimated GFR 99; Glucose 113 mg/dL (80-115); Potassium 3.9 mmol/L (3.5-5.1); Sodium 138 mmol/L (136-145)
[2024-05-10] MEDS ORDERED: PROPOFOL 40 ML ONE (08:42)
[2024-05-10] MEDS ORDERED: Lidocaine 1% PF 5 ML VIAL ONE (08:42)
[2024-05-10] MEDS ORDERED: EPINEPHrine 1 MG/10 ML Abboject SYRINGE ONE (09:16)
[2024-05-10] MEDS ORDERED: PROPOFOL 20 ML ONE (09:29)
[2024-05-10 19:38] LABS: Hematocrit 18.6 % (36.0-47.0); Hemoglobin 6.3 g/dL (12.0-16.0); Platelet Count 118 10x3/uL (130-400)
[2024-05-10 22:45] VITALS: TEMP 98.3
== END 2024-05-10 22:45 | disposition short-term general hospital (02) | DRG 377 ==
LOC: ERS 18:13 → ERHOLD 22:30 → 2NO 05-09 12:36 → IMCU/EMU 05-09 20:21
PROVIDERS: ADMIT Student in an Organized Health Care Education/Training Program; ATTEND Hospitalist
PROC: 30233N1 Transfusion of Nonautologous Red Blood Cells into Peripheral Vein, Percutaneous Approach (ICD-10-PCS; 2024-05-08)
PROC: 0W3P8ZZ Control Bleeding in Gastrointestinal Tract, Via Natural or Artificial Opening Endoscopic (ICD-10-PCS; principal; 2024-05-10)
PROC: 30233K1 Transfusion of Nonautologous Frozen Plasma into Peripheral Vein, Percutaneous Approach (ICD-10-PCS; 2024-05-10)
PROC: 3E033XZ Introduction of Vasopressor into Peripheral Vein, Percutaneous Approach (ICD-10-PCS; 2024-05-10)
DX: K92.2 Gastrointestinal hemorrhage, unspecified (principal); G93.6 Cerebral edema; I63.9 Cerebral infarction, unspecified; D62 Acute posthemorrhagic anemia; F41.9 Anxiety disorder, unspecified; H47.611 Cortical blindness, right side of brain; H47.612 Cortical blindness, left side of brain; H53.47 Heteronymous bilateral field defects; K31.7 Polyp of stomach and duodenum; K21.9 Gastro-esophageal reflux disease without esophagitis; J30.2 Other seasonal allergic rhinitis; Z88.0 Allergy status to penicillin; Z79.82 Long term (current) use of aspirin; Z85.3 Personal history of malignant neoplasm of breast; Z92.21 Personal history of antineoplastic chemotherapy; Z79.899 Other long term (current) drug therapy; Z86.73 Personal history of transient ischemic attack (TIA), and cerebral infarction without residual deficits; Z98.890 Other specified postprocedural states
CPT/HCPCS: 36415; 36416; 36430; 70450; 80048; 80053; 82728; 82805; 83540; 83550; 83605; 83735; 85014; 85018; 85025; 85610; 85730; 86850; 86900; 86901; 93005; 93010; 96361; 96365; 96366; 96376; C9113; J0171; J2704; J3480; J3490; P9016; P9059